=== PATIENT | male | born 1970 ===

== ENCOUNTER 2018-08-06 13:58 | Inpatient (IN) | payer BC ==
[2018-08-06 13:58] VITALS: BMI 23.6
--- NOTE | 2018-08-06 14:58 | ED PDOC ---
HPI: Neurologic - General Time Seen by Provider: 08/06/18 14:37 Chief Complaint (Nursing): Weakness/Neurological Deficit Chief Complaint (Provider): LLE weakness - History of Present Illness Allergies/Adverse Reactions: Allergies shellfish derived Allergy (Verified 08/06/18 14:31) RASH Home Medications: Ambulatory Orders Dalfampridine [Ampyra] 10 mg PO Q12 08/06/18 Additional Complaint(s): Pt with h/o MS reports new weakness to LLE X 3 days, minimally able to ambulate with cane. Denies SCOTT, fever. Past Medical History Reviewed: Nursing Documentation, Vital Signs Vital Signs: Last Vital Signs Temp 98.5 F 08/06/18 14:28 Pulse 102 H 08/06/18 14:28 Resp 18 08/06/18 14:28 BP 117/64 08/06/18 14:28 Pulse Ox 99 08/06/18 14:28 - Medical History PMH: Depression, Multiple Sclerosis Denies: Chronic Kidney Disease - Family History Family History: States: Unknown Family Hx - Living Arrangements Living Arrangements: Alone - Social History Current smoker - smoking cessation education provided: No - Home Medications Home Medications: Ambulatory Orders Medication Instructions Recorded Dalfampridine [Ampyra] 10 mg PO Q12 08/06/18 - Allergies Allergies/Adverse Reactions: Allergies Allergy/AdvReac Type Severity Reaction Status Date / Time shellfish derived Allergy RASH Verified 08/06/18 14:31 Review of Systems Constitutional: Negative for: Fever Cardiovascular: Negative for: Chest Pain Respiratory: Negative for: Shortness of Breath Neurological: Positive for: Weakness (LLE), Incoordination. Negative for: Change in Speech, Altered Mental Status, Headache, Dizziness Physical Exam - Reviewed Nursing Documentation Reviewed: Yes Vital Signs Reviewed: Yes - Physical Exam Appears: Positive for: Well, No Acute Distress Head Exam: Positive for: ATRAUMATIC, NORMAL INSPECTION Skin: Positive for: Rash (Generalize) - Laboratory Results Result Diagrams: 08/10/18 05:30 08/10/18 05:30 - ECG O2 Sat by Pulse Oximetry: 99 Medical Decision Making Medical Decision Makin:[address] Smith, recommends labs, MRI brain/C-spine/T-spine with and without contrast, r/o infection. May need pulse doses of steroids for 3-[address] Valdez or d/c home with 1000 mg Prednisone X 5 days. Call back with results. Disposition - Clinical Impression Clinical Impression: Multiple sclerosis exacerbation - Disposition Disposition: Transfer of Care Disposition Time: 19:00 Condition: STABLE Patient Signed Over To: Apple Juarez Handoff Comments: Pending MRI.
--- NOTE | 2018-08-06 15:59 | RAD ---
Date of service: 08/06/2018 HISTORY: MS exacerbation COMPARISON: 04/02/2014 TECHNIQUE: Chest PA and lateral FINDINGS: LINES AND TUBES: None. LUNG AND PLEURA: The lungs are well inflated and clear. No pleural effusion or pneumothorax. HEART AND MEDIASTINUM: The heart is not enlarged. No aortic atherosclerotic calcification present. The hilar and mediastinal contours are within normal limits. SKELETAL STRUCTURES: The bony structures are within normal limits for the patient's age. VISUALIZED UPPER ABDOMEN: Normal. OTHER FINDINGS: None. IMPRESSION: No active pulmonary disease.
[2018-08-06 16:05] LABS: BASO % 0.6 % (0.0-2.0); EOS # 0.2 K/uL (0.0-0.7); EOS % 3.7 % (0.0-4.0); HEMOGLOBIN 16.8 g/dL (12.0-18.0); LYMPH # 0.6 K/uL (1.0-4.3); LYMPH % 14.3 % (20.0-40.0); MEAN CELL VOLUME 89.7 fl (80.0-94.0); MEAN CORPUSCULAR HEMOGLOBIN 30.1 pg (27.0-31.0); MEAN CORPUSCULAR HGB CONC 33.5 g/dL (33.0-37.0); MEAN PLATELET VOLUME 8.2 fl (7.2-11.7); MONO # 0.7 K/uL (0.0-0.8); MONO % 16.9 % (0.0-10.0); NEUT # 2.6 K/uL (1.8-7.0); NEUT % 64.5 % (50.0-75.0); NRBC % 0.3 % (0.0-0.0); RBC 5.6 Mil/uL (4.40-5.90); RED CELL DISTRIBUTION WIDTH 14.5 % (11.5-14.5); WHITE BLOOD COUNT 4.1 K/uL (4.8-10.8)
[2018-08-06 16:19] LABS: ALB/GLOB RATIO 1.3 (1.0-2.1); ALBUMIN 4.5 g/dL (3.5-5.0); BLOOD UREA NITROGEN 16 mg/dl (9-20); CALCIUM 8.6 mg/dL (8.4-10.2); GFR NON-AFRICAN AMERICAN > 60
[2018-08-06 16:21] LABS: ALT/SGPT 44 U/L (21-72); AST/SGOT 68 U/L (17-59)
[2018-08-06] MEDS ORDERED: Gadodiamide 287 MG/ML VIAL (15ML) IV ONE (18:45)
--- NOTE | 2018-08-06 19:37 | ED PDOC ---
- Laboratory Results Result Diagrams: 08/06/18 15:50 08/06/18 15:50 - ECG O2 Sat by Pulse Oximetry: 99 Medical Decision Making Medical Decision Making: Time:1899 The patient is endorsed to provider from Dr. Garay pending MRI results, neurological consult and final disposition. Time: 2135 --MRI Brain FINDINGS: The sella and parasellar regions are unremarkable in appearance. The corpus callosum and cerebellar tonsils are of normal configuration and position. There are no intra or extra-axial collections. There is no mass effect or midline shift. There is no evidence of hematoma formation. There is no hydrocephalus. The brain stem shows no mass effects, infarcts or hemorrhage. There are no cerebellopontine tumors. The acoustic nerves are symmetrical. No cerebellar intra-axial pathology delineated. The fourth ventricle and aqueduct are normal. No abnormalities of the optic nerves are identified. There is no evidence of atrophic or degenerative changes. No dural or subdural masses or collections are detected. The visualized arterial structures demonstrate normal appearing flow voids. The VII and VIII nerve bundles are visualized and are unremarkable in appearance. Numerous foci of T2/FLAIR hyperintensity are noted in the bilateral periventricular and subcortical white matter. Some have perpendicular configuration with respect to lateral ventricles (Chaves's fingers). This is is compatible with demyelinating disease. There is no abnormal enhancement. IMPRESSION: Numerous nonenhancing white matter lesions compatible with chronic severe demyelinating disease. No acute pathology. Time: 2136 --MRI C-Spine COMMENTS: The visualized osseous elements are intact with no evidence of fracture or dislocation. The marrow signals are within normal limits. The cervical cord is of normal uniform signal intensity without evidence of focal expansion. There is no evidence for tonsillar herniation. Limited views of the posterior fossa reveal no abnormalities. Multilevel dehydration and desiccation is seen. Evaluation of individual levels present the following: C2-C3, there is no disc herniation or bulge present. The canal and foramina are patent. C3-C4, 1 mm bulge indents the ventral thecal sac. The canal and foramina are patent. C4-C5, 1 mm bulge indents the ventral thecal sac. The canal and foramina are patent. C5-C6, broad based disc protrusion measures 2 mm with superimposed bulge present. Mild to moderate bilateral foraminal stenosis. Canal is borderline stenotic. Bilateral hypertrophic facet disease is seen. C6-C7, broad central herniated disc measures 2 mm indents the ventral thecal sac. Canal is borderline stenotic. Foramina are patent. C7-T1 level is unremarkable. Post gadolinium sequences reveal no evidence for abnormal enhancement. IMPRESSION: 1. C3-C4, 1 mm bulge indents the ventral thecal sac. 2. C4-C5, 1 mm bulge indents the ventral thecal sac. 3. C5-C6, broad based disc protrusion with superimposed bulge. Mild to moderate bilateral foraminal stenosis. Canal is borderline stenotic. Bilateral hypertrophic facet disease is seen. 4. C6-C7, broad central herniated disc indents the ventral thecal sac. Canal is borderline stenotic. 5. Unremarkable spinal cord. Time: 2140 --MRI Thoracic FINDINGS: SPINAL CORD: Normal cord signal and contour. VERTEBRAE: No acute fracture or aggressive appearing osseous lesion. ALIGNMENT: Bony alignment is anatomic. DEGENERATIVE CHANGES: Mild multilevel degenerative spondylosis. PARASPINAL SOFT TISSUES: Unremarkable. MISCELLANEOUS: Mild thoracic dextroscoliosis. Several vertebral body hemangiomas. IMPRESSION: 1. Mild thoracic dextroscoliosis. 2. Several vertebral body hemangiomas. 3. Mild multilevel degenerative spondylosis. 4. Unremarkable spinal cord. [address] Smith who recommends pulse steroids 1000 mg solumedrol IV daily and admission for MS relapse. [address] Hernández who will admit the patient to his service. Scribe Attestation: Documented by Yrn Moore, acting as a scribe for Apple Juarez MD. Provider Scribe Attestation: All medical record entries made by the Scribe were at my direction and personally dictated by me. I have reviewed the chart and agree that the record accurately reflects my personal performance of the history, physical exam, medical decision making, and the department course for this patient. I have also personally directed, reviewed, and agree with the discharge instructions and disposition. Disposition Discussed With : America Hernández Doctor Will See Patient In The: Hospital Counseled Patient/Family Regarding: Studies Performed, Diagnosis - Clinical Impression Clinical Impression: Multiple sclerosis exacerbation - POA Present On Arrival: None - Disposition Disposition: Admitted as In-Patient Disposition Time: 22:20 Condition: GOOD
[2018-08-06] MEDS ORDERED: methylPREDNISolone 1 GM in Sodium Chloride 0.9% 250 ML IV ONE (22:45)
[2018-08-07 07:05] LABS: ALB/GLOB RATIO 1.3 (1.0-2.1); ALBUMIN 4.1 g/dL (3.5-5.0); ALT/SGPT 47 U/L (21-72); AST/SGOT 48 U/L (17-59); BLOOD UREA NITROGEN 17 mg/dl (9-20); CALCIUM 8.8 mg/dL (8.4-10.2); GFR NON-AFRICAN AMERICAN > 60
[2018-08-07 07:07] LABS: BASO % 0.5 % (0.0-2.0); EOS % 0.4 % (0.0-4.0); HEMOGLOBIN 16.2 g/dL (12.0-18.0); LYMPH # 0.3 K/uL (1.0-4.3); LYMPH % 18.7 % (20.0-40.0); MEAN CORPUSCULAR HEMOGLOBIN 30.3 pg (27.0-31.0); MEAN CORPUSCULAR HGB CONC 33.3 g/dL (33.0-37.0); MEAN PLATELET VOLUME 7.8 fl (7.2-11.7); MONO % 2.9 % (0.0-10.0); NEUT # 1.3 K/uL (1.8-7.0); NEUT % 77.5 % (50.0-75.0); NRBC % 0.6 % (0.0-0.0); RBC 5.33 Mil/uL (4.40-5.90); RED CELL DISTRIBUTION WIDTH 14.4 % (11.5-14.5)
[2018-08-07] MEDS ORDERED: Influenza Vaccine (5 YR UP)/PF 60 MCG/0.5 ML SYR IM ONE (07:11)
[2018-08-07 07:12] LABS: WHITE BLOOD COUNT 1.6 K/uL (4.8-10.8)
[2018-08-07] MEDS: Enoxaparin 40 mg Syringe SC SCH (08:36)
[2018-08-07 11:10] LABS: SQUAMOUS EPITHIAL < 1 /hpf (0-5); URINE BACTERIA RARE (<OCC); URINE BILIRUBIN NEGATIVE (NEGATIVE); URINE BLOOD NEGATIVE (NEGATIVE); URINE CLARITY CLOUDY (Clear); URINE COLOR AMBER (YELLOW); URINE GLUCOSE (UA) NEG (NEGATIVE); URINE LEUKOCYTE ESTERASE NEG Leu/uL (Negative); URINE PROTEIN 30 mg/dL (NEGATIVE)
--- NOTE | 2018-08-07 13:25 | MRI ---
Date of service: 08/06/2018 PROCEDURE: MRI BRAIN WITH AND WITHOUT CONTRAST HISTORY: MS COMPARISON: Comparison is made with the previous study dated 05/28/2017 TECHNIQUE: Multiplanar, multisequence MR images of the brain were obtained with and without intravenous contrast enhancement. FINDINGS: HEMORRHAGE: None DWI: No evidence of an acute or early subacute infarction. BRAIN PARENCHYMA: Again noted are scattered subcortical and periventricular foci of hyperintense T2 FLAIR signal consistent with the patient's known history of MS. There has been no significant interval changes noted since the prior exam. Itft-[id number] volume loss is again noted. ENHANCEMENT: No evidence of enhancing lesion in the brain. VENTRICLES: Unremarkable. No hydrocephalus. CRANIUM: Unremarkable. ORBITS: Grossly unremarkable. PARANASAL SINUSES/MASTOIDS: There is mucosal thickening and air-fluid level noted in the left maxillary and sphenoid sinuses. Mild mucosal thickening noted in the right maxillary and ethmoid sinuses. VASCULAR SYSTEM: Skull base flow voids intact. OTHER FINDINGS: None . IMPRESSION: No evidence of acute intracranial abnormality. Stable white matter changes consistent with the patient's known multiple sclerosis. No evidence of enhancing mass lesion or abnormal enhancement in the brain parenchyma. Mucosal thickening and air-fluid level in the left maxillary and left sphenoid suggestive of sinusitis.
--- NOTE | 2018-08-07 13:53 | MRI ---
Date of service: 08/06/2018 PROCEDURE: MR THORACIC SPINE WITH AND WITHOUT CONTRAST HISTORY: MS COMPARISON: Comparison is made to the previous study dated 10/26/2015 TECHNIQUE: Multiecho multiplanar sequences were performed through the thoracic spine with and without the use of intravenous contrast. FINDINGS: ALIGNMENT: Normal thoracic spinal alignment. Mild thoracic dextroscoliosis is again noted.. VERTEBRA: Vertebral body height are preserved. Again noted is hyperintense T1 and T2 signal bony lesion at T8 vertebral body likely represent benign hemangioma. Also again noted is focal hyperintense T1 and T2 signal heterogeneous lesion at L1 likely represent hemangioma MARROW: No evidence of destructive bony lesion. PARASPINAL SOFT TISSUES: Unremarkable. CORD: Focal cord atrophy and slightly hyperintense signal is again noted at T3-T4 level. No evidence of new cord lesion.. No volume loss, signal abnormality or syrinx. DISCS: Multilevel mild degenerative disc and endplate changes are again noted. ENHANCEMENT: No abnormal enhancement. OTHER FINDINGS: None. IMPRESSION: No evidence of new thoracic cord lesion or abnormal enhancement. Stable focal hyperintense T2 signal and focal mild atrophy of the thoracic cord at T3-T4 level again noted. Mild dextroscoliosis. Mild degenerative changes. Of Preliminary report was submitted by [facility]. Radiology
--- NOTE | 2018-08-07 15:19 | MRI ---
Date of service: 08/06/2018 PROCEDURE: MR CERVICAL SPINE WITH AND WITHOUT CONTRAST HISTORY: MS COMPARISON: Comparison is made with 10/26/2015 TECHNIQUE: Multiecho multiplanar sequences were performed through the cervical spine with and without the use of intravenous contrast. FINDINGS: Normal lordotic curvature. Craniocervical junction unremarkable. Vertebral body heights preserved. No marrow signal abnormality. Again noted are foci of hyperintense T2 signal in the cervical cord and brainstem which are stable compared to the prior study. No paraspinal abnormality. No abnormal enhancement C2-3: No disc herniation, spinal canal stenosis or neural foraminal narrowing. C3-4: No disc herniation, spinal canal stenosis or neural foraminal narrowing. Degenerative disc changes. C4-5: No disc herniation, spinal canal stenosis or neural foraminal narrowing. Degenerative disc changes. C5-C6: Small central bulging disc at C5-C6 noted without evidence of significant spinal or neural foraminal narrowing. C6-C7: Broad-based bulging disc at C6-C7 associated with mild central spinal stenosis. C7-T1: No disc herniation, spinal canal stenosis or neural foraminal narrowing. OTHER FINDINGS: None. IMPRESSION: Stable scattered foci of hyperintense T2 signal at the midbrain and cervical cord. No evidence of enhancing lesion in the cervical cord. Multilevel mild disc and endplate degenerative changes more prominent at C5-C6 and C6-C7.
--- NOTE | 2018-08-07 15:58 | CP.PCM.CON ---
History of Present Illness - History of Present Illness History of Present Illness: 48 yr old male who was diagnosed with MS about 20 years ago, who is here for sudden onset left leg weakness and pain on . Mr Beard was celebrating when his leg started to feel strange and became weak. Cervical and thoracic MRI do not show any new lesions, but MRI Lumbar spine has not been done. He is able to stand but has great difficulty, and the pain has resoved. There is no aphasia,dysarthria, headache, or blurriness of vision. THere is baseline right leg foot drop. His outside neurologist is Dr. Smith and he is on [facility]. ROS: as above. PMH/PSH: as above FH/SH: no tobacco, no etoh. ON disability. All: nkda. O/E: AAOX3. PERRL. Nystagmus bilaterally. EOMI. motor: left quads and hams are 4-/5, decreased sensation non dermatomal in left leg. Right leg is 4+/5, and there is foot drop. No ataxia. HE can stand but is too weak to take steps. Past Patient History - Past Social History Smoking Status: Former Smoker - CARDIAC Hx Cardiac Disorders: No - PULMONARY Hx Respiratory Disorders: No - NEUROLOGICAL Hx Neurological Disorder: Yes Hx Multiple Sclerosis: Yes (Infusion of [place] [id number]) - HEENT Hx HEENT Problems: No - RENAL Hx Chronic Kidney Disease: No - ENDOCRINE/METABOLIC Hx Endocrine Disorders: No - HEMATOLOGICAL/ONCOLOGICAL Hx Blood Disorders: No - INTEGUMENTARY Hx Dermatological Problems: Yes Hx Eczema: Yes - MUSCULOSKELETAL/RHEUMATOLOGICAL Hx Musculoskeletal Disorders: Yes Hx Degenerative Joint Disease: Yes Hx Falls: No Other/Comment: Multiple sclerosis - GASTROINTESTINAL Hx Gastrointestinal Disorders: No - GENITOURINARY/GYNECOLOGICAL Hx Genitourinary Disorders: No - PSYCHIATRIC Hx Psychophysiologic Disorder: No Hx Depression: No (patient denies) Hx Substance Use: No - SURGICAL HISTORY Hx Surgeries: Yes (leg abcess removeable) Other/Comment: right leg abscess removal - ANESTHESIA Hx Anesthesia: Yes Hx Anesthesia Reactions: No Hx Malignant Hyperthermia: No Meds Allergies/Adverse Reactions: Allergies Allergy/AdvReac Type Severity Reaction Status Date / Time shellfish derived Allergy RASH Verified 08/06/18 14:31 - Medications Medications: Current Medications Enoxaparin Sodium (Lovenox) 40 mg SC DAILY [facility]; Protocol Last Admin: 08/07/18 08:36 Dose: 40 mg Home Med (Dalfampridine [Ampyra]) 10 mg PO Q12 [facility] Results - Vital Signs Recent Vital Signs: Last Vital Signs Temp 97.5 F L 08/07/18 07:58 Pulse 71 08/07/18 07:58 Resp 19 08/07/18 07:58 BP 107/67 08/07/18 07:58 Pulse Ox 96 08/07/18 07:58 - Labs Result Diagrams: 08/07/18 06:40 08/07/18 06:40 Labs: Laboratory Results - last 24 hr 08/06/18 08/06/18 08/07/18 15:50 15:50 06:40 WBC 4.1 L 1.6 L* D RBC 5.60 5.33 Hgb 16.8 16.2 Hct 50.2 48.5 MCV 89.7 D 91.0 MCH 30.1 30.3 MCHC 33.5 33.3 RDW 14.5 14.4 Plt Count 230 215 MPV 8.2 7.8 Neut % (Auto) 64.5 77.5 H Lymph % (Auto) 14.3 L 18.7 L [place] % (Auto) 16.9 H 2.9 Eos % (Auto) 3.7 0.4 Baso % (Auto) 0.6 0.5 Neut # (Auto) 2.6 1.3 L Lymph # (Auto) 0.6 L 0.3 L [place] # (Auto) 0.7 0.0 Eos # (Auto) 0.2 0.0 Baso # (Auto) 0.0 0.0 Sodium 140 Potassium 4.0 Chloride 101 Carbon Dioxide 27 Anion Gap 16 BUN 16 Creatinine 0.9 Est GFR ( Amer) > 60 Est GFR (Non-Af Amer) > 60 Random Glucose 90 Calcium 8.6 Total Bilirubin 0.7 AST 68 H D ALT 44 Alkaline Phosphatase 69 Total Protein 7.9 Albumin 4.5 Globulin 3.5 Albumin/Globulin Ratio 1.3 Urine Color Urine Clarity Urine pH Ur Specific [place] Urine Protein Urine Glucose (UA) Urine Ketones Urine Blood Urine Nitrate Urine Bilirubin Urine Urobilinogen Ur Leukocyte Esterase Urine RBC (Auto) Urine Microscopic WBC Ur Squamous Epith Cells Urine Bacteria 08/07/18 08/07/18 06:40 10:55 WBC RBC Hgb Hct MCV MCH MCHC RDW Plt Count MPV Neut % (Auto) Lymph % (Auto) [place] % (Auto) Eos % (Auto) Baso % (Auto) Neut # (Auto) Lymph # (Auto) [place] # (Auto) Eos # (Auto) Baso # (Auto) Sodium 140 Potassium 4.5 Chloride 101 Carbon Dioxide 32 H Anion Gap 12 BUN 17 Creatinine 0.9 Est GFR ( Amer) > 60 Est GFR (Non-Af Amer) > 60 Random Glucose 145 H Calcium 8.8 Total Bilirubin 0.6 AST 48 ALT 47 Alkaline Phosphatase 64 Total Protein 7.2 Albumin 4.1 Globulin 3.1 Albumin/Globulin Ratio 1.3 Urine Color [place] Urine Clarity Cloudy Urine pH 5.0 Ur Specific [place] 1.034 H Urine Protein 30 Urine Glucose (UA) Neg Urine Ketones Negative Urine Blood Negative Urine Nitrate Negative Urine Bilirubin Negative Urine Urobilinogen 1.0 Ur Leukocyte Esterase Neg Urine RBC (Auto) 6 H Urine Microscopic WBC 3 Ur Squamous Epith Cells < 1 Urine Bacteria Rare Assessment & Plan - Assessment and Plan (Free Text) Assessment: C spine mRI shows no enhancement in the cord. MRI THoracic shows hyperintensity in T4/t5 but this is unchanged. A/p: 48 yr old male with most likely MS exacerbation. I would recommend MRI lumbar spine and start solumedrol 1gm iv now and for 5 days. Gi prophylaxis as well. Thank you Dr. mancia
--- NOTE | 2018-08-07 17:13 | CP.PCM.PN ---
Subjective - Date & Time of Evaluation Date of Evaluation: 08/07/18 Time of Evaluation: 14:00 - Subjective Subjective: Patient resting comfortably in bed; no c/o headache or blurring of vision; no slurring of speech; feels too weak to walk VSS Heart- regular S1, S2 Lungs- CTA Abd.- + BS, soft, NT Ext.- no edema 1. Exacerbation of MS 2. Hematuria- outpatient renal ultrasound and urine cytology planned Plan to continue 1 g Solu-Medrol iv daily for 5 days; Protonix 40mg iv daily for GI prophylaxis ordered; MRI of L/S spine has been ordered by Dr. Montoya Objective - Vital Signs/Intake and Output Vital Signs (last 24 hours): Temp Pulse Resp BP Pulse Ox 98.2 F 89 18 128/70 95 08/07/18 16:17 08/07/18 16:17 08/07/18 16:17 08/07/18 16:17 08/07/18 16:17 - Medications Medications: Current Medications Enoxaparin Sodium (Lovenox) 40 mg SC DAILY [facility]; Protocol Last Admin: 08/07/18 08:36 Dose: 40 mg Home Med (Dalfampridine [Ampyra]) 10 mg PO Q12 [facility] - Labs Labs: 08/07/18 06:40 08/07/18 06:40
[2018-08-07] MEDS: methylPREDNISolone 1 GM in Sodium Chloride 0.9% 250 ML IV SCH (18:13)
[2018-08-08 08:49] LABS: BLOOD UREA NITROGEN 17 mg/dl (9-20); CALCIUM 8.5 mg/dL (8.4-10.2); GFR NON-AFRICAN AMERICAN > 60
[2018-08-08] MEDS ORDERED: methylPREDNISolone 1 GM in Sodium Chloride 0.9% 250 ML IV SCH (09:00)
[2018-08-08] MEDS: Enoxaparin 40 mg Syringe SC SCH (09:18)
[2018-08-08] MEDS: methylPREDNISolone 1 GM in Sodium Chloride 0.9% 250 ML IV SCH (09:18)
[2018-08-08 09:32] LABS: MEAN CELL VOLUME 88.7 fl (80.0-94.0); MEAN CORPUSCULAR HEMOGLOBIN 30.5 pg (27.0-31.0); MEAN CORPUSCULAR HGB CONC 34.3 g/dL (33.0-37.0); RBC 4.91 Mil/uL (4.40-5.90)
[2018-08-08 09:38] LABS: WHITE BLOOD COUNT 7.6 K/uL (4.8-10.8)
[2018-08-08] MEDS ORDERED: Gadodiamide 287 MG/ML VIAL (15ML) IV ONE (11:11)
--- NOTE | 2018-08-08 18:17 | CP.PCM.PN ---
Subjective - Date & Time of Evaluation Date of Evaluation: 08/08/18 Time of Evaluation: 16:00 Objective - Vital Signs/Intake and Output Vital Signs (last 24 hours): Temp Pulse Resp BP Pulse Ox 97.6 F 81 18 109/68 94 L 08/08/18 17:21 08/08/18 17:21 08/08/18 17:21 08/08/18 17:21 08/08/18 17:21 - Medications Medications: Current Medications Enoxaparin Sodium (Lovenox) 40 mg SC DAILY [facility]; Protocol Last Admin: 08/08/18 09:18 Dose: 40 mg Famotidine (Pepcid) 20 mg PO BID PRN PRN Reason: GI distress Home Med (Dalfampridine [Ampyra]) 10 mg PO Q12 [facility] Methylprednisolone 1 gm/ (Sodium Chloride) 250 mls @ 100 mls/hr IV DAILY [facility] Stop: 08/11/18 11:29 Last Admin: 08/08/18 09:18 Dose: 100 mls/hr Pantoprazole Sodium (Protonix Inj) 40 mg IVP DAILY [facility] Last Admin: 08/08/18 09:18 Dose: 40 mg - Labs Labs: 08/08/18 06:30 08/08/18 06:30
--- NOTE | 2018-08-08 18:47 | CP.PCM.PN ---
Subjective - Date & Time of Evaluation Date of Evaluation: 08/08/18 Time of Evaluation: 14:00 - Subjective Subjective: Patient feeling stronger today; LLE strength back to baseline; ambulating around his room with right foot drop also at base line VSS Skin- dry, flaky all over with erythema Heart- regular S1, S2 Lungs- CTA Abd.- + BS, soft, NT Ext.- No edema 1. Exacerbation of MS 2. Hematuria 3. Eczema- cont. Aquaphor ointment Cont. Solu-Medrol 1g iv daily for 3 more days; monitoring serum glucose; awaiting result of MRI L/S spine with and w/o contrast Objective - Vital Signs/Intake and Output Vital Signs (last 24 hours): Temp Pulse Resp BP Pulse Ox 97.6 F 81 18 109/68 94 L 08/08/18 17:21 08/08/18 17:21 08/08/18 17:21 08/08/18 17:21 08/08/18 17:21 - Medications Medications: Current Medications Enoxaparin Sodium (Lovenox) 40 mg SC DAILY [facility]; Protocol Last Admin: 08/08/18 09:18 Dose: 40 mg Famotidine (Pepcid) 20 mg PO BID PRN PRN Reason: GI distress Home Med (Dalfampridine [Ampyra]) 10 mg PO Q12 [facility] Methylprednisolone 1 gm/ (Sodium Chloride) 250 mls @ 100 mls/hr IV DAILY [facility] Stop: 08/11/18 11:29 Last Admin: 08/08/18 09:18 Dose: 100 mls/hr Pantoprazole Sodium (Protonix Inj) 40 mg IVP DAILY [facility] Last Admin: 08/08/18 09:18 Dose: 40 mg - Labs Labs: 08/08/18 06:30 08/08/18 06:30
[2018-08-08 23:36] VITALS: RESP 20
[2018-08-09] MEDS: Enoxaparin 40 mg Syringe SC SCH (08:26)
[2018-08-09] MEDS: methylPREDNISolone 1 GM in Sodium Chloride 0.9% 250 ML IV SCH (08:26)
--- NOTE | 2018-08-09 17:50 | CP.PCM.PN ---
Subjective - Date & Time of Evaluation Date of Evaluation: 08/09/18 Time of Evaluation: 18:00 - Subjective Subjective: Patient feeling better; ambulating with less right foot drop and less LLE weakness; denies pain VSS Heart- Regular S1, S2 Lungs- Clear to auscultation Abd.- + BS, soft, NT Ext.- No edema 1. Exacerbation of MS 2. Hematuria 3. Eczema 4. Hypercholesterolemia Continuing Solu-Medrol 1g iv daily for 1 more day; monitoring serum glucose; physical therapy eval. for gait stability completed; OT eval. recommended; CBC and CMP ordered for AM Objective - Vital Signs/Intake and Output Vital Signs (last 24 hours): Temp Pulse Resp BP Pulse Ox 97.7 F 88 20 126/79 97 08/09/18 17:00 08/09/18 17:00 08/09/18 17:00 08/09/18 17:00 08/09/18 17:00 - Medications Medications: Current Medications Enoxaparin Sodium (Lovenox) 40 mg SC DAILY [facility]; Protocol Last Admin: 08/09/18 08:26 Dose: 40 mg Famotidine (Pepcid) 20 mg PO BID PRN PRN Reason: GI distress Home Med (Dalfampridine [Ampyra]) 10 mg PO Q12 [facility] Methylprednisolone 1 gm/ (Sodium Chloride) 250 mls @ 100 mls/hr IV DAILY [facility] Stop: 08/11/18 11:29 Last Admin: 08/09/18 08:26 Dose: 100 mls/hr Pantoprazole Sodium (Protonix Inj) 40 mg IVP DAILY [facility] Last Admin: 08/09/18 08:26 Dose: 40 mg - Labs Labs: 08/08/18 06:30 08/08/18 06:30
[2018-08-10 06:32] LABS: HEMOGLOBIN 14.3 g/dL (12.0-18.0); MEAN CELL VOLUME 88.2 fl (80.0-94.0); MEAN CORPUSCULAR HEMOGLOBIN 30.5 pg (27.0-31.0); MEAN CORPUSCULAR HGB CONC 34.6 g/dL (33.0-37.0); RBC 4.68 Mil/uL (4.40-5.90); RED CELL DISTRIBUTION WIDTH 13.9 % (11.5-14.5); WHITE BLOOD COUNT 10.7 K/uL (4.8-10.8)
[2018-08-10 06:40] LABS: ALB/GLOB RATIO 1.3 (1.0-2.1); ALBUMIN 3.3 g/dL (3.5-5.0); ALT/SGPT 136 U/L (21-72); AST/SGOT 70 U/L (17-59); BLOOD UREA NITROGEN 21 mg/dl (9-20); GFR NON-AFRICAN AMERICAN > 60
[2018-08-10] MEDS: Enoxaparin 40 mg Syringe SC SCH (08:09)
[2018-08-10] MEDS: methylPREDNISolone 1 GM in Sodium Chloride 0.9% 250 ML IV SCH (08:09)
[2018-08-10 08:57] VITALS: BP 117/75; TEMP 98.1
--- NOTE | 2018-08-10 09:40 | MRI ---
Date of service: 08/08/2018 PROCEDURE: MR LUMBAR SPINE WITH AND WITHOUT CONTRAST HISTORY: MS COMPARISON: None available. TECHNIQUE: Multiecho multiplanar sequences were performed through the lumbar spine with and without the use of intravenous contrast. FINDINGS: Normal lumbar lordosis. Vertebral body heights are preserved. Marrow signal unremarkable. Conus terminates at approximately the mid to lower L1 level. Paraspinal soft tissues are unremarkable. No evidence of abnormal enhancement within the disc spaces or endplates to suggest discitis osteomyelitis. No evidence of abnormal signal or enhancement within the visualized distal thoracic spinal cord/conus. No evidence of abnormal enhancement along the descending nerve roots of the cauda equina. T12-L1: No disc herniation, spinal canal stenosis or neural foraminal narrowing. L1-2: No disc herniation, spinal canal stenosis or neural foraminal narrowing. L2-3: No disc herniation, spinal canal stenosis or neural foraminal narrowing. L3-4: No disc herniation, spinal canal stenosis or neural foraminal narrowing. L4-5: No disc herniation, spinal canal stenosis or neural foraminal narrowing. L5-S1: There is mild age related disc desiccation and posterior disc space narrowing. Small central and bilateral disc bulge minimally indents the ventral surface of the thecal sac however the overall central canal appears adequate. Facet joints are mildly hypertrophic at this level. Exit foramina adequate. OTHER FINDINGS: Note made of an approximately 2.6 x 2.2 cm a partially exophytic cyst arising from the the medial aspect upper/middle pole right kidney.. IMPRESSION: Minor degenerative spondylosis L5-S1 level. No evidence of abnormal enhancement. Right renal cyst as detailed above.
--- NOTE | 2018-08-10 10:12 | CP.PCM.PN ---
Subjective - Date & Time of Evaluation Date of Evaluation: 08/10/18 Time of Evaluation: 10:09 - Subjective Subjective: Neurology Follow-Up Note: Mr. Beard was evaluated this morning at bedside. He is currently receiving the 4th dose of IV Solumedrol and tolerating well. He admits that his symptoms of LLE pain and weakness have improved significantly since receiving the high dose steroids. Today he offers no new complaints. Denies h/a, dizziness, visual changes, chest pain, sob, n/v/d. Objective - Vital Signs/Intake and Output Vital Signs (last 24 hours): Temp Pulse Resp BP Pulse Ox 98.1 F 69 20 117/75 95 08/10/18 08:57 08/10/18 08:57 08/10/18 08:57 08/10/18 08:57 08/10/18 08:57 - Medications Medications: Current Medications Enoxaparin Sodium (Lovenox) 40 mg SC DAILY [facility] TO [facility]; Protocol Last Admin: 08/10/18 08:09 Dose: 40 mg Famotidine (Pepcid) 20 mg PO BID PRN PRN Reason: GI distress Home Med (Dalfampridine [Ampyra]) 10 mg PO Q12 [facility] Methylprednisolone 1 gm/ (Sodium Chloride) 250 mls @ 100 mls/hr IV DAILY [facility] Stop: 08/11/18 11:29 Last Admin: 08/10/18 08:09 Dose: 100 mls/hr Lactic Acid (Lac-Hydrin 12% Lotion (225 G)) 1 applic TOP BID PRN PRN Reason: Itching / Pruritus Last Admin: 08/10/18 06:40 Dose: 1 applic Pantoprazole Sodium (Protonix Inj) 40 mg IVP DAILY [facility] Last Admin: 08/10/18 08:09 Dose: 40 mg - Labs Labs: 08/10/18 05:30 08/10/18 05:30 - Constitutional Appears: Well, Non-toxic, No Acute Distress - Head Exam Head Exam: ATRAUMATIC, NORMAL INSPECTION, NORMOCEPHALIC - Eye Exam Eye Exam: EOMI, Normal appearance Pupil Exam: NORMAL ACCOMODATION - ENT Exam ENT Exam: Mucous Membranes Moist - Neck Exam Neck Exam: Full ROM, Normal Inspection - Respiratory Exam Respiratory Exam: NORMAL BREATHING PATTERN - Extremities Exam Extremities Exam: Full ROM - Back Exam Back Exam: Full ROM - Neurological Exam Neurological Exam: Alert, Awake, CN II-XII Intact, Oriented x3, Reflexes Normal Neuro motor strength exam: Left Upper Extremity: 5, Right Upper Extremity: 5, Left Lower Extremity: 5, Right Lower Extremity: 5 Additional comments: strength to BLE equal and strong at 5/5 slight right foot drop noted reflexes brisk b/l sensation equal and intact b/l gait not assessed; PT notes reviewed - Psychiatric Exam Psychiatric exam: Normal Affect, Normal Mood - Skin Skin Exam: Normal Color Additional comments: patches of dry, scaly skin to body Assessment and Plan (1) Multiple sclerosis exacerbation Assessment & Plan: -Mr. Beard may be d/c home today after 4th dose of IV Solumedrol. -Continue home medications as usual. -He may follow up with his neurologist outpatient. He already has a scheduled appt with Dr. Smith for 09/03/18. Thank you for allowing us to participate in this pt's care. Case discussed with Dr. Montoya Status: Acute
[2018-08-10 12:04] VITALS: PULSE 87
[2018-08-10] MEDS ORDERED: Influenza Vaccine 60 mcg/0.5 mL SYR (4YR UP) IM ONE (14:39)
--- NOTE | 2018-08-10 14:59 | CP.PCM.PN ---
Subjective - Date & Time of Evaluation Date of Evaluation: 08/10/18 Time of Evaluation: 14:30 - Subjective Subjective: Patient feels much better today; ambulating with cane; less weakness of LLE; less right foot drop; looking forward to going home VSS Heart- Regular S1, S2 Lungs- CTA Abd.- + BS, soft, NT Ext.- No edema; flat feet 1. Exacerbation of MS- willl continue Ampyra 10 mg q 12 hrs 2. Hematuria- eval. planned as outpatient 3. Flat feet- podiatry referral planned 4. Eczema- Lac-Hydrin crm bid prn Patient stable for discharge; will f/u with Dr. Smith 09/03/2018; f/u Dr. Hernández in 1 week Flu vaccine ordered Objective - Vital Signs/Intake and Output Vital Signs (last 24 hours): Temp Pulse Resp BP Pulse Ox 98.1 F 87 20 117/75 94 L 08/10/18 08:57 08/10/18 11:39 08/10/18 08:57 08/10/18 08:57 08/10/18 11:39 - Medications Medications: Current Medications Enoxaparin Sodium (Lovenox) 40 mg SC DAILY [facility]; Protocol Last Admin: 08/10/18 08:09 Dose: 40 mg Famotidine (Pepcid) 20 mg PO BID PRN PRN Reason: GI distress Home Med (Dalfampridine [Ampyra]) 10 mg PO Q12 [facility] Methylprednisolone 1 gm/ (Sodium Chloride) 250 mls @ 100 mls/hr IV DAILY [facility] Stop: 08/11/18 11:29 Last Admin: 08/10/18 08:09 Dose: 100 mls/hr Lactic Acid (Lac-Hydrin 12% Lotion (225 G)) 1 applic TOP BID PRN PRN Reason: Itching / Pruritus Last Admin: 08/10/18 06:40 Dose: 1 applic Pantoprazole Sodium (Protonix Inj) 40 mg IVP DAILY [facility] Last Admin: 08/10/18 08:09 Dose: 40 mg - Labs Labs: 08/10/18 05:30 08/10/18 05:30
[2018-08-10 22:28] VITALS: O2SAT 99
--- NOTE | 2018-08-17 02:52 | HP ---
CHIEF COMPLAINT: Increasing lower extremity weakness with loss of balance. HISTORY OF PRESENT ILLNESS: This is 48-year-old male who noted increasing weakness of both lower extremities starting two days prior to admission after consuming two glasses of pink moscato wine to celebrate [place]. He was diagnosed with MS approximately 20 years ago. Following consumption of the two glasses of pink moscato wine, the patient noted increasing weakness of his left lower extremity and increasing weakness of the right lower extremity with worsening right foot drop. The pain of the left lower extremity was approximately 8/10, and the patient states that he was unable to lift his left lower extremity, and therefore, he was unable to walk. Increasing weakness of the right lower extremity as well as worsening right foot drop cause loss of balance. He denied any aphasia, dysarthria, headache, or blurring of vision. After consulting with her neurologist Dr. Smith, he proceeded to [facility] for further evaluation. He denied any chest pain, shortness of breath, or palpitations. PAST MEDICAL HISTORY: Multiple sclerosis diagnosed approximately 20 years ago, severe eczema, hypercholesteremia, vitamin D deficiency, and flat feet. PAST SURGICAL HISTORY: Incision and drainage for right thigh abscess, following an injection. ALLERGIES: ALLERGY TO IODINE. HE IS ALSO ALLERGIC TO SHELL FISH. MEDICATIONS: Ampyra 10 mg p.o. every 12 hours; Ocrevus IV infusion 600 mg every 6 months, the patient had a second dose of Ocrevus in May; Diprolene AF applied thin film once or twice daily as needed for eczema. SOCIAL HISTORY: The patient does not smoke cigarette. He denies consumption of alcohol except as mentioned above. FAMILY HISTORY: Father has history of osteoarthritis. Mother at the age of 67, following coronary artery bypass surgery, she had a history of emphysema, she was a smoker. The patient has one brother and one sister, who are healthy. REVIEW OF SYSTEMS: Unremarkable, except as mentioned above. PHYSICAL EXAMINATION: GENERAL: This is a 48-year-old male, lying in bed, complaining of weakness in both lower extremities. He is unable to ambulate. VITAL SIGNS: Blood pressure 107/67 mmHg, respiration rate 19 respirations per minute, pulse rate of 71 beats per minute, temperature 97.5 Fahrenheit, pulse ox 96% on room air. SKIN: Warm, dry, flaky with erythema all over his body. HEENT: Atraumatic and normocephalic. Anicteric sclerae. Pupils equal, round, and reactive to light and accommodation. NECK: Supple. No jugular venous distention. No lymphadenopathy. HEART: Regular S1 and S2. No murmur. LUNGS: Clear to auscultation. ABDOMEN: Positive bowel sounds. Soft and nontender. EXTREMITIES: No edema. Left quad and hamstring muscles are -4/5 with decreased sensation of left lower extremity, right lower extremity is +4/5. Right foot drop is noted. Unable to walk secondary to weakness of both lower extremities. LABORATORY DATA: WBC 4100/mcL, hemoglobin 16.8 g/dL, hematocrit of 50.2%, and platelets 230,000/mcL. Sodium 140 mmol/L, potassium 4 mmol/L, chloride 101 mmol/L, carbon dioxide of 27 mmol/L, BUN 16 mg/dL, creatinine 0.9 mg/dL. AST elevated at 68 U/L, AST 44 U/L. ASSESSMENT: 1. Exacerbation of multiple sclerosis. 2. Severe eczema. 3. Hypercholesteremia. 4. Vitamin D deficiency. PLAN: Since Dr. Smith does not go to [facility], the patient will be seen by Dr. Demetrio Montoya. MRI of the cervical spine showed no enhancement in the cord. MRI of the thoracic spine showed hyperintensity at T4/T5, but this was noted to be unchanged compared to prior studies. The patient will be started on Solu-Medrol 1 g IV daily for 4 to 5 days. MRI of the lumbosacral spine will be ordered. The patient will be started on Protonix 40 mg IV daily as well as Pepcid 20 mg p.o. twice daily p.r.n. GI upset. For DVT prophylaxis, Lovenox 40 mg subcu daily has been ordered. PT evaluation for mobility will also be ordered. CBC and comprehensive metabolic panel has been ordered for the a.m. [place] Hernández MD
== END 2018-08-10 16:00 | disposition home or self-care (01) | DRG 60 ==
LOC: H.ER 13:58 → H.ERHOLD 22:21 → H.MEDSURG1 08-07 01:46
PROVIDERS: ADMIT Family Medicine Adult Medicine; ATTEND Family Medicine Adult Medicine
DX: G35 Multiple sclerosis (principal); E78.00 Pure hypercholesterolemia, unspecified; E86.0 Dehydration; L30.9 Dermatitis, unspecified; M21.371 Foot drop, right foot; M41.9 Scoliosis, unspecified; M47.9 Spondylosis, unspecified; M48.00 Spinal stenosis, site unspecified; M50.223 Other cervical disc displacement at C6-C7 level; Z87.891 Personal history of nicotine dependence; F32.9 Major depressive disorder, single episode, unspecified; M19.90 Unspecified osteoarthritis, unspecified site; R31.9 Hematuria, unspecified; D18.09 Hemangioma of other sites; M21.42 Flat foot [pes planus] (acquired), left foot; M21.41 Flat foot [pes planus] (acquired), right foot; E55.9 Vitamin D deficiency, unspecified; Z82.5 Family history of asthma and other chronic lower respiratory diseases